=== PATIENT | female | born 2005 | race Caucasian/White ===

== ENCOUNTER 2025-05-13 15:31 | Emergency (ER) | payer OTHER ==
[~2025-05-13] VITALS: Ht 172.7 cm; Wt 76.7 kg
[2025-05-13] MEDS ORDERED: SFHIBU600 PO (15:56)
[2025-05-13 17:52] LABS: BASO # 0.0 10^3/uL (0.0-0.2); BASO % 0.2 % (0.0-1.0); EOS # 0.0 10^3/uL (0.0-0.5); EOS % 0.1 % (0.0-3.0); LYMPH # 0.7 10^3/uL (1.5-5.0); LYMPH % 5.2 % (24.0-44.0); MONO # 1.1 10^3/uL (0.0-0.8); MONO % 8.2 % (2.0-8.0); NEUTROPHILS # 11.9 10^3/uL (1.5-8.5); NEUTROPHILS % 85.9 % (36.0-66.0); PLATELET COUNT, AUTOMATED 222 10^3/uL (150-450)
[2025-05-13 18:40] LABS: MONO SCRN NEGATIVE (NEGATIVE)
[2025-05-13] MEDS: ACETAMINOPHEN 500 MG TAB PO ONE (18:46)
[2025-05-13 18:47] LABS: CALCIUM LEVEL 9.2 MG/DL (8.5-10.1); CARBON DIOXIDE LEVEL 25 MMOL/L (20-31); CHLORIDE LEVEL 102 MMOL/L (98-107); CREATININE FOR GFR 0.71 MG/DL (0.55-1.30); GLOMERULAR FILTRATION RATE > 90.0 (>60); POTASSIUM SERUM 4.5 MMOL/L (3.5-5.1); SODIUM LEVEL 138 MMOL/L (136-145)
[2025-05-13 20:23] VITALS: BP 113/58; TEMP 100.2; O2SAT 94
== END 2025-05-13 20:25 | disposition home or self-care (01) ==
LOC: M ED 15:31
DX: R50.9 Fever, unspecified (principal); B34.9 Viral infection, unspecified; Z79.1 Long term (current) use of non-steroidal anti-inflammatories (NSAID)